=== PATIENT | female | born 1950 | race Caucasian/White ===

== ENCOUNTER 2020-07-28 10:30 | Emergency (ER) | payer OTHER ==
[~2020-07-28] VITALS: Ht 157.5 cm; Wt 49.3 kg
[2020-07-28] MEDS ORDERED: HYDROmorphone 1 MG/ML, 1ML INJ IVPush PRN (11:30)
[2020-07-28] MEDS ORDERED: SODIUM CHLORIDE FLUSH 10ML SYR IVF ONE (11:30)
[2020-07-28] MEDS ORDERED: ONDANSETRON 2MG/ML, 2ML IVPush ONE (11:30)
[2020-07-28] MEDS ORDERED: PROPOFOL 10 MG/ML, 20ML IVPush ONE (11:30)
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
[2020-07-28] MEDS ORDERED: PROPOFOL 10 MG/ML, 20ML ONE (12:15)
[2020-07-28] MEDS ORDERED: SODIUM CHLORIDE 0.9% 1,000ML IVBOLUS ONE (12:20)
--- NOTE | 2020-07-28 12:21 | NUR ---
CONSENT SIGNED FOR RT RADIAL REDUCTION WITH PROCEDURAL SEDATION. ALL MONITORS IN PLACE INCLUDING END TIDAL CO2. EDPA CAROL AT BEDSIDE, EDPA AND EDMD SULLVIAN NOTIFIED BP 114/40. EDPA ORDERED 1L NS BOLUS. EDPA AND EDMD NOTIFIED PT'S BASELINE SPO2 IS 89-90% ON ROOM AIR. PT PLACED ON OXYGEN AT 1.5L/MIN, NOW SATURATING AT 98%.
--- NOTE | 2020-07-28 12:26 | NUR ---
late entry for 1226: propofol 50mg administered by DAKOTAH Thomas, 150mg wasted by this RN, witnessed by ERIK Hsieh.
--- NOTE | 2020-07-28 12:33 | NUR ---
PT'S RIGHT WRIST REDUCED WITH PROCEDURAL SEDATION BY DAKOTAH MENA AND [facility]. SPLINT PLACED BY EDT. CMS INTACT S/P SPLINT. PT IS A&O TO BASELINE, VSS. PROCEDURE START TIME WAS 1226, END TIME 1228. XRAY AT BEDSIDE TO CONFIRM REDUCTION. PT NOTES 5/10 PAIN AT THIS TIME, DECLINES DILAUDID/ZOFRAN DOSE PREVIOUSLY ORDERED.
--- NOTE | 2020-07-28 13:33 | NUR ---
PT GIVEN DC INSTRUCTIONS AND SCRIPT, EDUCATED REGARDING RX FOR NORCO AND ORTHO F/U. PT IS A&O, RESPS EVEN AND UNLABORED. ETCO2 26 AT DC, SUMMER [facility] NOTIFIED, OK'D DC. PT AMBULATORY WITH STEADY GAIT, BUT GIVEN WC ESCORT TO DC. PIV DC'D WITH TIP INTACT. PT TO BE DRIVEN HOME BY FRIEND WHO IS ACCOMPANYING. Addendum: 07/28/20 at 1335 by SHAWN PT GIVEN DC INSTRUCTIONS AND SCRIPT, EDUCATED REGARDING RX FOR NORCO AND ORTHO F/U. PT IS A&O, RESPS EVEN AND UNLABORED. ETCO2 26 AT DC, BP 124/44 [facility] NOTIFIED, OK'D DC. PT IS ASYMPTOMATIC. PT DECLINES ANY PAIN MEDICATION DURING ED STAY, STATES PAIN TOLERABLE TO RT WRIST. PT AMBULATORY WITH STEADY GAIT, BUT GIVEN WC ESCORT TO DC. PIV DC'D WITH TIP INTACT. PT TO BE DRIVEN HOME BY FRIEND WHO IS ACCOMPANYING.
== END 2020-07-28 13:29 | disposition home or self-care (01) ==
LOC: ED 13:23 → MERGE 13:23 → ED 13:29
DX: S52.571A Other intraarticular fracture of lower end of right radius, initial encounter for closed fracture (principal); R94.31 Abnormal electrocardiogram [ECG] [EKG]; W01.0XXA Fall on same level from slipping, tripping and stumbling without subsequent striking against object, initial encounter; Y93.89 Activity, other specified; Y92.89 Other specified places as the place of occurrence of the external cause; Y99.0 Civilian activity done for income or pay
CPT/HCPCS: 73110; 93005; 99285; J2704; J7030